=== PATIENT | male | born 1965 ===

== ENCOUNTER 2025-03-07 12:24 | Outpatient (AMB) | payer OTHER, SELFPAY ==
--- NOTE | 2025-03-07 12:29 | A.OFFPC_ITS ---
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 Allergies carbamazepine [From Tegretol] Allergy (Verified 03/07/25 13:07) Rash gabapentin Allergy (Verified 03/07/25 13:07) rash swollen mouth Penicillins Allergy (Verified 03/07/25 13:07) Hives Medication List - Last Reconciled 03/07/25 by MADY Sainz- prednisone 15 mg PO QAM Tobacco use date assessed: 03/07/25 Dental Screening Dental Screen Date: 03/07/25 Did you have a dental visit in the last 12 months?: Yes Did you have a dental problem in the last 6 months where you did not have access to dental care?: No Was dental information given to patient?: Patient has dentist HPI ENVIRONMENTAL FIELD TECHNICIAN requesting Physical HPI Details History of Present Illness The patient is a 60-year-old male presenting with evaluation needs for urinary symptoms, a heart murmur, and skin lesions. He has not sought medical attention in three years. There are symptoms suggestive of benign prostatic hyperplasia with difficulty initiating urination and a weak stream, for which he's interested in addressing with PSA testing. A significant familial component of pancreatic cancer is present, as his brother succumbed to the disease at age 49. Cardiovascular health is a concern given his active lifestyle and existent bradycardia (runner), further compounded by a systolic murmur that warrants echocardiographic evaluation. Recently, he identified pruritic lesions in the right nipple region indicative of possible herpes zoster (started 2days ago). Prior medical history includes management of polymyalgia rheumatica with prednisone. Health Maintenance - PSA testing to address symptoms of dulce ign prostatic hyperplasia/.ssess prostate health, declined BA today - Family history of pancreatic cancer wa rrants a CA 19-9 and CEA testing, and MRI. - Echocardiography planned due to discov ered faint systolic murmur and bradycardia. - Confirm previous colonoscopy results f rom 2019 to determine the need for any future screenings. Social History - Engages in regular physical activity; is a runner. - Family history includes significant ca ncer risk; pancreatic cancer diagnosed in younger brother. Review of Systems - Cardiovascular: Denies chest pain or s hortness of breath. Reports bradycardia and a faint systolic murmur. - Gastrointestinal: Denies abdominal jessy n, constipation, diarrhea, bone stool. - Genitourinary: Reports weak urinary st ream and difficulty starting urination. - Dermatological: Reports itchy lesions over the right nipple, suspecting shingles. - Psychological: Denies any suicidal or homicidal ideation. Physical Exam General: Cooperative, healthy appearing, comfortable, no acute distress and well developed Orientation: Patient oriented x3 Limitations: No limitations Head: Normal to inspection Ears: Hearing grossly normal bilaterally Nose: Normal external nose present Face and sinus: Normal facial exam Eyes: Appearance normal, both eyes and all related structures Neck: Normal visual inspection and Yes full ROM Respiratory: Normal respiratory effort and able to speak in complete sentences. Clear to auscultation bilaterally Cardiovascular: Bradycardic. Regular rate and rhythm. Normal S1 and S2. Systolic murmur heard (faint) GI: Normal to inspection. Soft to palpation and nontender Skin: small erythematous slightly raised lesions noted in the right nipple region, running lateral Neuro: Patient oriented x3 Extremities: Normal to inspection Results Plan I plan to address the patient's urinary symptoms by commencing PSA testing. Considering his family history of pancreatic cancer, I will order CA 19-9 and CEA labs along with an MRI to monitor his pancreatic health. An echocardiogram will be scheduled to investigate the faint systolic murmur and assess for any underlying cardiac issues due to the observed bradycardia. For the skin lesions suggestive of shingles, antiviral medication will be provided. Management of his polymyalgia rheumatica with prednisone will continue without modification. Lastly, I intend to verify the details of his last colonoscopy and adjust future screening as necessary. Discussion Notes I discussed with the patient the indications for PSA testing as a preliminary assessment tool for his urinary symptoms suggestive of benign prostatic hyperplasia. We reviewed his significant familial risk of pancreatic cancer and agreed on the necessity for CA 19-9 and CEA tests, along with an MRI. I emphasized the importance of echocardiography to evaluate his heart murmur further, considering his bradycardic status. We discussed the typical presentation of shingles and the benefit of commencing antiviral treatment. I clarified that the current prednisone regimen for polymyalgia rheumatica remains appropriate. Verification of his prior colonoscopy will be initiated to guide continued cancer screening. Patient Instructions - Complete the prescribed lab work for P SA, CA 19-9, and CEA. - Schedule and attend the echocardiogram . - Begin the antiviral medication for howie james as directed. - Continue taking prednisone for PMR as currently prescribed. - Maintain regular exercise and inform o f any new concerns. - Ensure to follow up with results and f uture appointments. [facility] Medical History PMR (polymyalgia rheumatica) Surgical History H/O knee surgery Family History Father No problems noted. Mother No problems noted. Social History Housing: House Patient Tobacco Use Status: Never used Tobacco e-Cigarette/Vaping Use: Never Used service: No Current occupational status: employed Cognitive needs: No Hearing needs: No Vision needs: No Questionnaire PHQ-9 Over the last 2 weeks, how often have you been bothered by any of the following problems? 1. Little interest or pleasure in doing things: not at all 2. Feeling down, depressed, or hopeless: not at all 3. Trouble falling or staying asleep, or sleeping too much: not at all 4. Feeling tired or having little energy: not at all 5. Poor appetite or overeating: not at all 6. Feeling bad about yourself - or that you are a failure or have let yourself or your family down: not at all 7. Trouble concentrating on things, such as reading the newspaper or watching television: not at all 8. Moving or speaking so slowly that other people could have noticed. Or the opposite - being so fidgety or restless that you have been moving around a lot more than usual: not at all 9. Thoughts that you would be better off or of hurting yourself in some way: not at all Total score: 0 Depression Screening Interpretation: Negative Depression Screening Done: Yes 49256 - PHQ-9 Billing: Yes Source: Developed by Drs. Butch Jenkins, Marleny Kellogg, Frank Polanco and colleagues, with an educational alberto from [employer]. Thrive Questionnaire Date Thrive assessed: 03/07/25 I am a: Patient What is your living situation today?: I choose not to answer this question Within the past 12 months, did the food you bought not last and you didn't have the money to get more?: I choose not to answer this question Within the past 12 months, did you worry whether your food would run out before you got money to buy more?: I choose not to answer this question Do you have trouble paying for medicines?: I choose not to answer this question Do you have trouble getting transportation to medical appointments?: I choose not to answer this question Do you have trouble paying your heating and electricity bill?: I choose not to answer this question Do you have trouble taking care of your child, family member or friend?: I choose not to answer this question Do you have trouble with day-to-day activities such as bathing, preparing meals, shopping, managing finances, etc.?: I choose not to answer this question Are you currently unemployed and looking for a job?: I choose not to answer this question Are you interested in more education?: I choose not to answer this question Please select the resources that you would like help with: None Currently or been in a relationship where the following occur: I choose not to answer THRIVE Score: 0 AUDIT C Alcohol Use Questionnaire (AUDIT-C) 1. How often do you have a drink containing alcohol?: 4 or more times a week 2. How many drinks containing alcohol do you have on a typical day when you are drinking?: 1 or 2 3. How often do you have six or more drinks on one occasion?: Less than monthly Total Score: 5 BRIGHT-7 AMB Questionnaire BRIGHT-7 Date BRIGHT - 7 assessed: 03/07/25 Feeling nervous, anxious, or on edge: 0 = Not at all Not being able to stop or control worryin = Not at all Worrying too much about different things: 0 = Not at all Trouble relaxin = Not at all Being so restless that it is hard to sit still: 0 = Not at all Becoming easily annoyed or irritable: 0 = Not at all Feeling afraid as if something awful might happen: 0 = Not at all Total BRIGHT-7 score (0-4 normal; 5-9 mild; 10-14 moderate; 15-21 severe): 0 Source: Developed by Drs. Butch Jenkins, Marleny Kellogg, Frank Polanco and colleagues, with an educational alberto from [employer]. BRIGHT-7 Assessment Billing BRIGHT-7 Assessment Tool: BRIGHT-7 Assessment 94477 Physical exam (Primary Care) Vital Signs: Last Vital Signs Temp 98.1 F 03/07/25 12:30 Pulse 51 03/07/25 12:30 Resp 18 03/07/25 12:30 BP 118/72 03/07/25 12:30 Pulse Ox 97 03/07/25 12:30 Oxygen Delivery Method Room Air 03/07/25 12:30 BMI result Body Mass Index 27.3 Tobacco/Smoking Status: Tobacco use Status Tobacco use date assessed 03/07/25 03/07/25 12:38 Patient Tobacco Use Status Never used Tobacco 03/07/25 12:38 e-Cigarette/Vaping Use Never Used 03/07/25 12:38 PHQ-9: PHQ-9 Score PHQ-9: Total score 0 03/07/25 12:38 Depression Screening Interpretation: Negative Thrive Assessment: Date of Thrive Assessment Date Thrive assessed 03/07/25 03/07/25 12:38 Currently or been in a relationship where the following occur: I choose not to answer Coding Level of Care Code Est Pt Prev Care 40-64y(54719) Diagnoses Physical exam Z00.00 Screening for prostate cancer Z12.5 Family history of pancreatic cancer Z80.0 Systolic murmur R01.1 Additional Codes BRIGHT-7 Assessment Billing - BRIGHT-7 Assessment Tool: BRIGHT-7 Assessment 67857 ([id number]) PHQ-9 - 15536 - PHQ-9 Billing: Yes ([id number]) Assessment & Plan Assessment & Plan (1) Physical exam: Code(s): Z00.00 - Encounter for general adult medical examination without abnormal findings Category: Medical (2) Screening for prostate cancer: Code(s): Z12.5 - Encounter for screening for malignant neoplasm of prostate Category: Medical (3) Family history of pancreatic cancer: Code(s): Z80.0 - Family history of malignant neoplasm of digestive organs Category: Medical (4) Systolic murmur: Code(s): R01.1 - Cardiac murmur, unspecified Category: Medical Plan . Orders: Orders Comprehensive [place]. Panel Fast Today Z00.00 - Encounter for general adult medical examination without abnormal findings TSH reflex Free T4 Today Z00.00 - Encounter for general adult medical examination without abnormal findings Prostate Specific Antigen Scr Today Z12.5 - Encounter for screening for malignant neoplasm of prostate MR abdomen wo/w con Today Z80.0 - Family history of malignant neoplasm of digestive organs Complete Blood Count Auto Diff Today Z00.00 - Encounter for general adult medical examination without abnormal findings UA CC w/rflx Micro + Cult Today Z00.00 - Encounter for general adult medical examination without abnormal findings Lipid Panel Today Z00.00 - Encounter for general adult medical examination without abnormal findings Carbohydrate Antigen 19-9 Today Z80.0 - Family history of malignant neoplasm of digestive organs Carcinoembryonic Antigen Today Z80.0 - Family history of malignant neoplasm of digestive organs CA echo transthoracic complete Today R01.1 - Cardiac murmur, unspecified Medications: New valacyclovir 1,000 mg PO Q8H 7 days 21 tabs 0RF
--- NOTE | 2025-03-07 12:29 | A.OFFPC_ITS ---
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 1. Little interest or pleasure in doing things: not at all 2. Feeling down, depressed, or hopeless: not at all 3. Trouble falling or staying asleep, or sleeping too much: not at all 4. Feeling tired or having little energy: not at all 5. Poor appetite or overeating: not at all 6. Feeling bad about yourself - or that you are a failure or have let yourself or your family down: not at all 7. Trouble concentrating on things, such as reading the newspaper or watching television: not at all 8. Moving or speaking so slowly that other people could have noticed. Or the opposite - being so fidgety or restless that you have been moving around a lot more than usual: not at all 9. Thoughts that you would be better off or of hurting yourself in some way: not at all Total score: 0 Depression Screening Interpretation: Negative Depression Screening Done: Yes 34626 - PHQ-9 Billing: Yes Source: Developed by Drs. Butch Jenkins, Marleny Kellogg, Frank Polanco and colleagues, with an educational alberto from [employer]. Thrive Questionnaire Date Thrive assessed: 03/07/25 I am a: Patient What is your living situation today?: I choose not to answer this question Within the past 12 months, did the food you bought not last and you didn't have the money to get more?: I choose not to answer this question Within the past 12 months, did you worry whether your food would run out before you got money to buy more?: I choose not to answer this question Do you have trouble paying for medicines?: I choose not to answer this question Do you have trouble getting transportation to medical appointments?: I choose not to answer this question Do you have trouble paying your heating and electricity bill?: I choose not to answer this question Do you have trouble taking care of your child, family member or friend?: I choose not to answer this question Do you have trouble with day-to-day activities such as bathing, preparing meals, shopping, managing finances, etc.?: I choose not to answer this question Are you currently unemployed and looking for a job?: I choose not to answer this question Are you interested in more education?: I choose not to answer this question Please select the resources that you would like help with: None Currently or been in a relationship where the following occur: I choose not to answer THRIVE Score: 0 AUDIT C Alcohol Use Questionnaire (AUDIT-C) 1. How often do you have a drink containing alcohol?: 4 or more times a week 2. How many drinks containing alcohol do you have on a typical day when you are drinking?: 1 or 2 3. How often do you have six or more drinks on one occasion?: Less than monthly Total Score: 5 Score Reviewed/Action Taken: Yes BRIGHT-7 AMB Questionnaire BRIGHT-7 Date BRIGHT - 7 assessed: 03/07/25 Feeling nervous, anxious, or on edge: 0 = Not at all Not being able to stop or control worryin = Not at all Worrying too much about different things: 0 = Not at all Trouble relaxin = Not at all Being so restless that it is hard to sit still: 0 = Not at all Becoming easily annoyed or irritable: 0 = Not at all Feeling afraid as if something awful might happen: 0 = Not at all Total BRIGHT-7 score (0-4 normal; 5-9 mild; 10-14 moderate; 15-21 severe): 0 Source: Developed by Drs. Butch Jenkins, Marleny Kellogg, Frank Polanco and colleagues, with an educational alberto from [employer]. BRIGHT-7 Assessment Billing BRIGHT-7 Assessment Tool: BRIGHT-7 Assessment 11127 Physical exam (Primary Care) Depression Screening Interpretation: Negative Currently or been in a relationship where the following occur: I choose not to answer Coding Additional Codes PHQ-9 - 62043 - PHQ-9 Billing: Yes ([id number]) BRIGHT-7 Assessment Billing - BRIGHT-7 Assessment Tool: BRIGHT-7 Assessment 11299 ([id number])
[2025-03-07 12:30] VITALS: BP 118/72; PULSE 51; RESP 18; TEMP 36.7; O2SAT 97; BMI 27.3
--- OUTSIDE RECORDS SUMMARY | 2025-03-07 14:24 | XMS_ITS | Patient Health Record ---
Author Organization [facility] Address [address] [place] [address] Care Team Providers Care Client Specialist Name Role Phone TRU DE LA O Unavailable [phone] ALLERGIES Allergen (clinical drug ingredient) Drug/Non Drug Allergy documented on EMR Reaction Allergy Type Onset Date Status gabapentin Gabapentin Unknown Drug Allergy Activ e carbamazepine TEGretol Unknown Drug Allergy Act eli Penicillin Unknown Drug Allergy Active REASON FOR REFERRAL No Information SOCIAL HISTORY Tobacco Use: Social History Observation Description Date Details (start date - stop date) Never Smoker NA - NA Sex Assigned At : Social History Observation Description Sex Assigned At Unknown Tobacco Use/Smoking Question Answer Notes 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 Comprehensive discussion was done on the following. 1. Nutrition: It is important to follow a healthy diet based on lots of vegetables and legumes and good fat. Avoid processed food and processed carbohydrates. Learn to prepare your own meals. Learn to read labels and avoid high fructose corn syrup, processed chemicals added to increase shelf life and preprepared meals. Avoid fast foods. Learn to eat slowly and plan meals for a week. Try to count calories and be mindful off daily calorie intake. Get into the habit of keeping an eye on your weight by using an appropriate scale. Learn to log exercise and discussed fitness Apps like [employer] which can help keep log off calories taken versus calories burned. Local food should be preferred. Discussed Dirty Dozen Versus Clean Fifteen. Discussed healthy supplements like fish oil, Tumeric, Curcumin, Melatonin, Resveratrol, Probiotics, Vitamin-D, Alpha-Lipoic acid, Vitamin-D and coconut oil. 2. It is important to exercise regularly. Is a good habit to walk at least 30-45 minutes a day. Gentle weightlifting with standard precautions to protect the back. Finding activity like cycling or hiking and get into the habit of engaging in it. Stretching before and after the exercises important. It is also important to contact me if there are any problems like shortness of breath, chest pain, back pain and joint or muscle pain associated with the exercise. 3. Discussed age appropriate screening guidelines. Colonoscopy needs to start at age 50 with stool for occult blood as appropriate. There is a new test that can test for genetic abnormalities in the stool sample. This would not replace a colonoscopy but could be used as a screening tool for patients who do not want a colonoscopy. We discussed the importance of early detection of colon cancer. 4. Discussed current guidelines with respect to breast examination, mammogram and pap smear for early detection of breast and cervical cancer. Patient advised to follow up with these appointments. 5. Discussed safe driving and no use of smart phone while driving 6. Age-appropriat e immunizations were discussed. A tetanus booster is needed every 10 years. Flu vaccine is recommended every year just before the start of the flu season. Shingles vaccine is recommended after age 50 but not all insurances cover it. Pneumonia vaccine is given after age 65 unless there are certain comorbidities for which it is started earlier. 7. Diagnostic labs were discussed. These could include CBC CMP and lipids with fasting blood glucose and insulin levels. Vitamin D and hemoglobin A1c testing might be appropriate. 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 confirmed [id number] Problem Dyslipidemia (E78.5) Active confirmed D yslipidemia ([id number]) PLAN OF TREATMENT Pending Test Test Name Order Date EKG 06/15/2022 LIPID PANEL, STANDARD 06/15/2022 LIPID PANEL, STANDARD 05/05/2022 COMPREHENSIVE METABOLIC PANEL 05/05/2022 CBC (INCLUDES DIFF/PLT) 05/05/2022 URINALYSIS, COMPLETE 05/05/2022 HEMOGLOBIN A1c 05/05/2022 INSULIN 05/05/2022 T4, FREE 06/15/2022 TSH 06/15/2022 VITAMIN D,25-OH,TOTAL,IA 05/05/2022 Insurance Providers Payer Name Payer Address Payer Phone Subscriber Number Group Number Insured Name Patient Relationship to Insured Coverage Start Date Coverage End Date [facility] [address] [place] [address] [id number] Self - patient is the insured
== END 2025-03-07 13:48 | disposition home or self-care (01) ==
LOC: HO.HMCC 12:26
PROVIDERS: PCP Nurse Practitioner Family; Visit Provider Nurse Practitioner Family
DX: Z00.00 Encounter for general adult medical examination without abnormal findings (principal); Z12.5 Encounter for screening for malignant neoplasm of prostate; Z80.0 Family history of malignant neoplasm of digestive organs; R01.1 Cardiac murmur, unspecified

== ENCOUNTER → 2025-03-07 12:24 | Outpatient (BNVA) | payer OTHER, SELFPAY | PROVIDERS: PCP Nurse Practitioner Family; Visit Provider Nurse Practitioner Family | DX: Z00.00 Encounter for general adult medical examination without abnormal findings (principal); R01.1 Cardiac murmur, unspecified; Z80.0 Family history of malignant neoplasm of digestive organs | CPT/HCPCS: 96127; 99396 ==

== ENCOUNTER 2025-03-12 06:40 | Outpatient (REF) | payer OTHER, SELFPAY ==
[2025-03-12 10:36] LABS: MANUAL DIFF FLAG NO
[2025-03-12 10:46] LABS: Basophils Absolute Auto 0.1 X10*3/uL (0.0-0.2); Basophils Percent Auto 0.9 % (0-2); Eosinophils Absolute Auto 0.9 X10*3/uL (0.0-0.4); Hematocrit 41.5 % (42.0-52.0); Hemoglobin 13.1 g/dl (14.0-18.0); Imm Gran Abs Auto 0.06 X10*3/uL (0.00-0.03); Imm Gran Pct Auto 0.6 % (0.0-0.4); Lymphocytes Absolute Auto 2.8 X10*3/uL (1.2-4.9); Lymphocytes Percent Auto 30.3 % (20-40); Mean Corpuscular HGB Conc 31.6 g/dl (31.0-36.0); Mean Corpuscular Hemoglobin 23.5 pg (27.0-33.0); Mean Corpuscular Volume 74.4 fL (80.0-98.0); Monocytes Percent Auto 10.4 % (2-11); Neutrophils Absolute Auto 4.5 x10*3/uL (2.0-8.3); Neutrophils Percent Auto 47.8 % (45-73); Platelet Count 223 X10*3/uL (160-400); Red Blood Count 5.58 X10*6/uL (4.60-5.80); Red Cell Distribution Width 16.3 % (11.0-16.0); White Blood Count 9.3 X10*3/uL (4.8-10.8)
[2025-03-12 10:56] LABS: Appearance Urine Clear; Color Urine Yellow; Glucose Urine UA Negative (Negative); Leukocyte Esterase Urine Negative (Negative); Nitrite Urine Negative (Negative); PH 6.5 (5.0-9.0); Specific Gravity - Urine 1.015 (1.005-1.025); Urine Blood Negative (Negative); Urine Ketones Negative (Negative); Urine Protein Negative (Neg-Trace)
[2025-03-12 11:31] LABS: Prostate Specific Antigen Scr 5.22 ng/mL (<0.05-4.0)
[2025-03-12 11:39] LABS: Alanine Aminotransferase 17 U/L (0-40); Albumin Level 3.8 g/dL (3.5-5.0); Alkaline Phosphatase 42 U/L (39-117); Anion Gap 10 (12-20); Aspartate Amino Transferase 20 U/L (5-37); Bilirubin Total 0.4 mg/dL (0.0-1.0); Blood Urea Nitrogen 16 mg/dL (9-16); Calcium 9.2 mg/dL (8.4-10.2); Carbon Dioxide 28 mmol/L (22-29); Chloride 104 mmol/L (96-108); Cholesterol 245 mg/dL (<200); Estimated Glomerular Filt Rate > 60; Glucose Fasting 90 mg/dL (60-99); HDL Cholesterol 79 mg/dL (>40); LDL Cholesterol Calculated 149 mg/dL (<100); Potassium 3.7 mmol/L (3.3-5.1); Sodium 138 mmol/L (135-145); Total Protein 6.2 g/dL (6.5-8.0); Triglycerides 86 mg/dL (<150)
[2025-03-12 11:54] LABS: TSH reflex Free T4 4.06 uIU/mL (0.32-4.0)
[2025-03-12 12:46] LABS: Free T4 (Free Thyroxine) 0.86 ng/dL (0.71-1.85)
[2025-03-13 14:33] LABS: Carbohydrate Antigen 19-9 10 U/mL (<34)
== END 2025-03-12 06:41 | disposition home or self-care (01) ==
LOC: HO.HMGCLDS 06:40
PROVIDERS: PCP Nurse Practitioner Family; Visit Provider Nurse Practitioner Family
DX: Z00.00 Encounter for general adult medical examination without abnormal findings (principal); Z12.5 Encounter for screening for malignant neoplasm of prostate; Z80.0 Family history of malignant neoplasm of digestive organs
CPT/HCPCS: 36415; 80053; 80061; 81003; 82378; 84153; 84439; 84443; 85025; 86301

== ENCOUNTER → 2025-03-16 15:45 | Outpatient (BNV) | payer OTHER, SELFPAY | PROVIDERS: PCP Nurse Practitioner Family; Visit Provider Radiology Diagnostic Radiology | DX: D35.01 Benign neoplasm of right adrenal gland (principal); D35.02 Benign neoplasm of left adrenal gland | CPT/HCPCS: 74183 ==

== ENCOUNTER 2025-03-16 15:46 | Outpatient (REF) | payer OTHER, SELFPAY ==
--- NOTE | ~2025-03-16 | MR_ITS ---
EXAMINATION: MR ABDOMEN WITHOUT AND WITH CONTRAST CLINICAL INFORMATION: Family history of pancreatic cancer. COMPARISON: None available. TECHNIQUE: MR abdomen was performed without and with use of 9 mL intravenous (Gadavist) gadolinium contrast. Postcontrast images are performed in multiphase dynamic sequences. Imaging was performed in 3 planes. No reported immediate complications. FINDINGS: Patient's breathing motion artifact. LUNG BASES: No enhancing lesion. No fully included in the [id number]. LIVER, GALLBLADDER, AND BILIARY TREE: Liver measures 14 cm. No focal enhancing mass. Portal veins, hepatic veins and intrahepatic portion of the IVC are patent. No intrahepatic biliary ductal dilatation. Gallbladder is fluid-filled. No pericholecystic fluid collection or gallbladder wall thickening. Common bile duct measures 4 mm. PANCREAS: No focal mass. No main pancreatic ductal dilatation. No peripancreatic fluid collection. SPLEEN: 10 cm. No focal mass. ADRENAL GLANDS: Right adrenal gland: There is a 2 cm nodular lesion with iso to hypointense T1 and isointense T2 with drop off signal from the interface to the out of phase sequences. Left adrenal gland: There is a 1.4 cm nodular lesion with iso to hypointense T1 and isointense T2 with drop off signal from the in phase to out of phase imaging . KIDNEYS AND URETERS: No hydronephrosis. No solid lesion. Cystic lesions in the parapelvic left kidney and subcentimeter cystic lesion in the upper pole right kidney. GASTROINTESTINAL TRACT: Abundant stool, large intestine. No intestinal obstruction pattern. No ascites. ABDOMINAL WALL: Fat-containing umbilical hernia. LYMPH NODES: No lymphadenopathy. VASCULAR: No aneurysm or dissection, abdominal aorta. OSSEOUS STRUCTURES: Mild multilevel thoracic and lumbar spondylosis. MR/MR abdomen wo/w con IMPRESSION: No pancreatic mass. Lipid rich Adrenal adenoma, bilaterally. Electronically signed by: Giovani Infante MD 03/20/2025 08:44 AM EDT
--- OUTSIDE RECORDS SUMMARY | 2025-03-16 15:51 | XMS_ITS | Patient Health Record ---
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 Comprehensive discussion was [...] log exercise and discussed fitness Apps like [employer] which can help keep log off calories [...] appropriate. 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 confirmed [id number] Problem Dyslipidemia (E78.5) Active confirmed D yslipidemia (751189646) PLAN OF TREATMENT Pending Test Test Name Order Date EKG 06/15/2022 LIPID PANEL, STANDARD 05/05/2022 LIPID PANEL, STANDARD 06/15/2022 COMPREHENSIVE METABOLIC PANEL 05/05/2022 CBC (INCLUDES DIFF/PLT) 05/05/2022 URINALYSIS, COMPLETE 05/05/2022 HEMOGLOBIN A1c 05/05/2022 INSULIN 05/05/2022 T4, FREE 06/15/2022 TSH 06/15/2022 VITAMIN D,25-OH,TOTAL,IA 05/05/2022 Insurance Providers Payer Name Payer Address Payer Phone Subscriber Number Group Number Insured Name Patient Relationship to Insured Coverage Start Date Coverage End Date [facility] [address] [place] [address] [id number] Self - patient is the insured
[2025-03-16] MEDS: gadobutroL 10 ML VIAL IVPUSH (17:11)
== END 2025-03-16 15:47 | disposition home or self-care (01) ==
LOC: HO.MRI 15:46
PROVIDERS: PCP Nurse Practitioner Family; Visit Provider Nurse Practitioner Family
DX: D35.02 Benign neoplasm of left adrenal gland (principal); D35.01 Benign neoplasm of right adrenal gland; Z80.0 Family history of malignant neoplasm of digestive organs
CPT/HCPCS: 74183; A9585

== ENCOUNTER → 2025-03-21 10:43 | Outpatient (REF) | payer OTHER, SELFPAY ==
--- NOTE | 2025-03-21 10:45 | CA_ITS ---
Transthoracic Echocardiogram Patient (Last, First, Middle): Giles Solis, Gender: Male Date of : 1965 Age: 60 Procedure Date: 03/21/2025 Procedure Type: Transthoracic Echocardiogram Location: OP Height: 182.88 cm Weight: 88.45 kg BSA: 2.11 m2 Heart Rate: 51 bpm BP: 118 / 70 mmHg Fretted Instruments Inspector: SB Referring MD: Pastor Castro [facility] Symptoms: R01.1 - Cardiac murmur, unspecified Study Quality: Adequate ECG Rhythm: Bradycardia Conclusions: - The left ventricular systolic function is normal. The calculated ejection fraction is 65% by biplane method. - No obvious valvular pathology seen on this study. Findings Left Ventricle Normal left ventricular cavity size. The left ventricular systolic function is normal. The calculated ejection fraction is 65% by biplane method. There is no evidence of regional wall motion abnormalities. Diastolic function is normal for age. There is mild septal and mild basal asymmetric hypertrophy. Right Ventricle Mildly increased right ventricular cavity size. There is normal right ventricular systolic function. Atria The left atrium is normal in size. The right atrium is mildly dilated. Aortic Valve There is a normal trileaflet aortic valve. There is no aortic valve stenosis. There is no aortic valve regurgitation. Mitral Valve There is no mitral valve regurgitation. There is no mitral valve stenosis. Pulmonic Valve The pulmonic valve is likely normal. Tricuspid Valve There is no tricuspid valve regurgitation. Tricuspid regurgitation envelope is inadequate for calculation of right ventricular systolic pressure. Great Vessels The asc aorta is normal in size. Venous The inferior vena cava is mildly dilated and collapses greater than 50% with inspiration. Pericardium/Pleural There is no evidence of pericardial effusion. Prior Study Comparison No prior study available for comparison. Recommendations, Care & Conclusions No obvious valvular pathology seen on this study. Measurements 2D Linear Measurements IVSd: 0.94 0.6-0.9/0.6-1.0 cm LVIDd: 5.55 3.9-5.3/4.2-5.9 cm LVIDd Index: 2.63 2.4-3.2/2.2-3.1 cm/m2 LVIDs: 3.68 2.0-3.6 cm LVPWd: 0.86 0.7-1.1 cm LA Diam: 4.40 2.7-3.8/3.0-4.0 cm LAIDs Index: 2.09 1.5-2.3 cm/m2 LV Mass: 234.65 67-162/88-224 g LV Mass Index: 111.21 43-95/49-115 g/m2 LVOT Diam: 2.40 3.0+(-)1.3 cm 2D Systolic Function EF 4C: 65.10 >55% EF 2C: 60.70 >55% EF BiP: 64.90 >55% Mitral Valve MV Pk E: 0.78 MV PK A: 0.76 MV Decel Time: 229.00 E/A: 1.00 E'Lateral: 8.59 E'Medial: 5.98 E/E' Med: 13.10 E/E' Lat: 9.10 PHT: 67.00 MVA PHT: 3.28 Decel Starr: 3.42 Aortic Valve AoV Pk Efrain: 1.42 AoV Pk Grad: 8.00 LIBIA: 3.77 LVOT LVOT Pk Efrain: 1.25 LVOT Mn Efrain: 0.76 LVOT VTI: 0.26 LVOT Pk Grad: 6.00 LVOT Mn Grad: 3.00 LVOT Diam: 2.40 LVOT Area: 4.52 Diastolic Function MV Pk E: 0.78 MV Pk A: 0.76 E/A: 1.00 E'Medial: 5.98 E/E' Med: 13.10 E' Laterial: 8.59 E/E' Lat: 9.10 Right Ventricle TAPSE (mm): 23.00 TVS' Efrain: 14.00 Tricuspid Valve RA Press: 8.00 Great Vessels Aorta Sinus of Valsalva: 3.60 2.0-3.5 cm Ao Asc: 3.60 2.1-3.4 cm Pulmonary Valve PV Pk Efrain: 1.02 Peak PV Grad: 4.00 Updated in Other Vendor System with Status of Final Jonathan Membreno MD electronically signed on 03/22/2025 10:27:32 AM with status of Final
--- OUTSIDE RECORDS SUMMARY | 2025-03-21 12:46 | XMS_ITS | Patient Health Record ---
Author Organization [facility] Address [address] [place] [address] Care Team Providers Care Brake Operator Sheet Metal Name Role Phone TRU DE LA O Unavailable [phone] ALLERGIES Allergen (clinical drug ingredient) Drug/Non Drug [...] findings (Z00.00) Active confirmed Adult health examination (212551871) Patient seen and examined. Comprehensive discussion was [...] log exercise and discussed fitness Apps like [employer] which can help keep log off calories [...] appropriate. 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
== END ==
LOC: HO.CARD 10:43
PROVIDERS: PCP Nurse Practitioner Family; Visit Provider Nurse Practitioner Family
DX: R01.1 Cardiac murmur, unspecified (principal)
CPT/HCPCS: 93306

== ENCOUNTER → 2025-03-21 10:45 | Outpatient (BNV) | payer OTHER, SELFPAY | PROVIDERS: PCP Nurse Practitioner Family; Visit Provider Internal Medicine | DX: R01.1 Cardiac murmur, unspecified (principal) | CPT/HCPCS: 93306 ==

== ENCOUNTER 2025-04-15 | Outpatient (REF) | payer OTHER, SELFPAY ==
[2025-04-24 07:23] LABS: FIT Lot M01203
[2025-04-24 07:42] LABS: FIT Int Ctl YES; FIT1 NEGATIVE (NEGATIVE); FIT2 NEGATIVE (NEGATIVE)
== END 2025-04-15 00:01 | disposition home or self-care (01) ==
LOC: HO.LNP
PROVIDERS: Visit Provider Nurse Practitioner Family
DX: D64.9 Anemia, unspecified (principal)
CPT/HCPCS: 82274

== ENCOUNTER 2025-04-26 06:44 | Outpatient (REF) | payer OTHER, SELFPAY ==
[2025-04-26 10:44] LABS: Retic HGB Equivalent 27.2 pg (30.0-35.0); Reticulocyte Percent 1.3 % (0.5-1.8); Reticulocytes Absolute 0.071 X10*6/uL (0.026-0.095)
[2025-04-26 11:07] LABS: Alanine Aminotransferase 28 U/L (0-40); Alkaline Phosphatase 52 U/L (39-117); Anion Gap 11 (12-20); Aspartate Amino Transferase 25 U/L (5-37); Bilirubin Total 0.2 mg/dL (0.0-1.0); Blood Urea Nitrogen 12 mg/dL (9-16); Calcium 9.2 mg/dL (8.4-10.2); Carbon Dioxide 29 mmol/L (22-29); Chloride 103 mmol/L (96-108); Cholesterol 197 mg/dL (<200); Estimated Glomerular Filt Rate > 60; Glucose Fasting 98 mg/dL (60-99); HDL Cholesterol 70 mg/dL (>40); Iron 65 mcg/dL (45-160); LDL Cholesterol Calculated 108 mg/dL (<100); Lactate Dehydrogenase 315 U/L (118-273); Percent Iron Saturation 27 % (15-50); Potassium 3.7 mmol/L (3.3-5.1); Sodium 139 mmol/L (135-145); Total Iron Binding Capacity 244 mcg/dL (228-428); Total Protein 6.4 g/dL (6.5-8.0); Triglycerides 95 mg/dL (<150); Unsaturated Iron Binding 179 ug/dL
[2025-04-26 11:27] LABS: Ferritin 242 ng/mL (20-250)
[2025-04-26 11:40] LABS: Folate 8.8 ng/mL (> or = 4.0); Vitamin B12 317 pg/mL (200-900)
[2025-04-26 12:05] LABS: Free T4 (Free Thyroxine) 0.96 ng/dL (0.71-1.85)
== END 2025-04-26 06:45 | disposition home or self-care (01) ==
LOC: HO.HMGCLDS 06:44
PROVIDERS: PCP Nurse Practitioner Family; Visit Provider Nurse Practitioner Family
DX: E78.5 Hyperlipidemia, unspecified (principal); D64.9 Anemia, unspecified; R79.89 Other specified abnormal findings of blood chemistry
CPT/HCPCS: 36415; 80053; 80061; 82607; 82728; 82746; 83540; 83615; 84439; 84443; 85045

== ENCOUNTER 2025-05-02 15:35 | Outpatient (AMB) | payer OTHER, SELFPAY ==
--- OUTSIDE RECORDS SUMMARY | 2025-05-02 15:44 | XMS_ITS | Patient Health Record ---
Author Organization [facility] Address [address] [place] [address] Care Team Providers Care Leather Case Finisher Name Role Phone TRU DE LA O Unavailable [phone] Allergies Allergen (clinical drug ingredient) Drug/Non Drug Allergy documented on EMR Reaction Allergy Type Onset Date Status gabapentin Gabapentin Unknown Drug Allergy Activ e carbamazepine TEGretol Unknown Drug Allergy Act eli Penicillin Unknown Drug Allergy Active Reason For Referral No Information Social History Tobacco Use: Social History Observation Description Date Details (start date - stop date) Never Smoker NA - NA Tobacco Use/Smoking Question Answer Notes Are you a nonsmoker Section Notes: auto body auto body Problems Problem Type SNOMED Code ICD Code Onset Dates Problem Status W/U Status Risk Notes Problem Adult health examination (419474727) Encounter for general adult medical examination without abnormal findings (Z00.00) Active confirmed Patient seen and examined. Comprehensive discussion was [...] log exercise and discussed fitness Apps like [employer] which can help keep log off calories [...] hemoglobin A1c testing might be appropriate. Problem [id number] Acquired hyperlipoproteinemia (E78.5) Active confirmed Problem Dyslipidemia (420338657) Dyslipidemia (E78.5) Active confirmed Plan Of Treatment Pending Test Test Name Order Date EKG [...] Insured Coverage Start Date Coverage End Date [facility] [address] [facility] [place] [address] [phone] [id number] LAXMI HAMM Self - patient is the insured
--- NOTE | 2025-05-02 15:57 | A.OFFVIS_ITS ---
Intake Visit Reasons: elevated PSA Intake Note: Patient is present for ELEVATED PSA Urology Medication:NONE Antibiotic Allergy:PENICILLINS,GABAPENTIN Blood Thinner:NONE Machine Cleaner Required: No Allergies carbamazepine [From Tegretol] Allergy (Verified 05/02/25 15:58) Rash gabapentin Allergy (Verified 05/02/25 15:58) rash swollen mouth Penicillins Allergy (Verified 05/02/25 15:58) Hives HPI Comments Details: Giles is a pleasant male. He is a patient of Dr. Etienne. He is seen for the following urologic conditions - elevated PSA - urinary hesitancy - weakness of stream Elevated PSA Enlarged prostate on BA Plan bladder ultrasound Trial alfuzosin Elevated PSA PSA - 03/23 5.2 Lower urinary tract symptoms Initial assessment predominantly urinary hesitancy and weakness of stream No prior medications PFSH Medical History PMR (polymyalgia rheumatica) Surgical History H/O knee surgery Family History Father No problems noted. Mother No problems noted. Social History Housing: House Patient Tobacco Use Status: Never used Tobacco e-Cigarette/Vaping Use: Never Used service: No Current occupational status: employed Cognitive needs: No Hearing needs: No Vision needs: No Review of Systems Const Denies chills and Denies fever(s) Card Reports no additional complaints and Denies syncope Resp Denies cough GI Denies abdominal pain and Denies heartburn Reports as per HPI and Denies change in libido Neuro Denies syncope Psych Denies change in libido Endo Denies change in libido Physical Exam Const General: cooperative, healthy appearing, comfortable and no acute distress Orientation/consciousness: patient oriented x3 HEENT Face and sinus: Yes normal facial exam Mouth: moist mucous membranes Neck Neck: Yes normal visual inspection, Yes full ROM and Yes trachea midline Chest Chest palpation & inspection: normal inspection of the chest Resp Effort & Inspection: normal respiratory effort, able to speak in complete sentences and no respiratory distress GI Inspection: Yes normal to inspection Rectal Exam - Male: Yes normal sphincter tone and Yes prostate normal Male General Exam: Yes normal external exam Penis: normal penis and circumcised Meatus: meatus normal Scrotum: scrotum normal Testes: Testes normal Back/Spine/Pelvis Cervical Spine: normal cervical lordosis Thoracic/Lumbar Spine: thoracic and lumbar spine normal to inspection Skin General skin exam: no rashes or lesions noted Neuro General: patient oriented x3, gait normal, tone normal and moves all extremities Extrem General: Yes normal to inspection and Yes capillary refill normal Results AMB Urinalysis, Automated UA Leukoctes 0 Sarah/uL Last Edit by Carter Paula [facility] on 05/02/25 16:12 UA Nitrite Last Edit by Carter Paula, [facility] on 05/02/25 16:12 UA Urobilinogen 3.5 mg/dL Last Edit by Carter Paula, [facility] on 05/02/25 16:12 UA Protein 0 mg/dL Last Edit by Carter Paula, [facility] on 05/02/25 16:12 UA pH 6.0 Last Edit by Carter Paula, [facility] on 05/02/25 16:12 UA Blood 0 Bhargav/uL Last Edit by Carter Paula, [facility] on 05/02/25 16:12 UA Specific [place] 1.010 Last Edit by Carter Paula, [facility] on 05/02/25 16:12 UA Ketone Last Edit by Carter Paula, [facility] on 05/02/25 16:12 UA Bilirubin 0 mg/dL Last Edit by Carter Paula, [facility] on 05/02/25 16:12 UA Glucose 0 mg/dL Last Edit by Carter Paula, [facility] on 05/02/25 16:12 Results Reviewed Results Reviewed: Laboratory Last Values Urine pH (Auto) 6.0 05/02/25 16:07 Specific [place] (Auto) 1.010 05/02/25 16:07 Urine Protein (Auto) 0 mg/dL 05/02/25 16:07 Glucose (UA)(Auto) 0 mg/dL 05/02/25 16:07 Urine Blood (Auto) 0 Bhargav/uL 05/02/25 16:07 Urine Bilirubin (Auto) 0 mg/dL 05/02/25 16:07 Urine Urobilinogen (Auto) 3.5 mg/dL 05/02/25 16:07 Leukocyte Esterase (Auto) 0 Sarah/uL 05/02/25 16:07 Assessment & Plan Assessment & Plan (1) Elevated prostate specific antigen (PSA): Code(s): R97.20 - Elevated prostate specific antigen [PSA] Category: Medical (2) Urinary hesitancy: Code(s): R39.11 - Hesitancy of micturition Category: Medical (3) Weak urinary stream: Code(s): R39.12 - Poor urinary stream Category: Medical Plan Trial of alfuzosin Three-month follow-up repeat PSA Bladder ultrasound Orders: Orders AMB Urinalysis Automated Today Z13.9 - Encounter for screening, unspecified PSA,Total (Free>4and<10) 3 Months R97.20 - Elevated prostate specific antigen [PSA] US bladder Today R39.12 - Poor urinary stream Medications: New alfuzosin ER 10 mg PO DAILY 30 days 30 tabs 1RF R97.20 - Elevated prostate specific antigen [PSA] Patient Instructions: This note is constructed using voice recognition software. While every effort villasenor s been made to ensure accuracy cutter out errors may have been included. Imaging studies, laboratory and physical exam results were discussed and reviewed in detail. No major barriers to patient understanding were identified. An opportunity to ask questions regarding the treatment plan was provided. All questions were answered. The patient expressed understanding and agreement with the above treatment plan. The patient is aware they should contact our office by phone for worsening of their current condition or the appearance of new urologic symptoms. Compliance is encouraged with any medications and followup testing that is ordered. It is a privilege to participate in the urologic care of your patient. If you have any questions or concerns regarding treatment for the above conditions, or other urologic issues, please do not hesitate to contact me. The office telephone contact is [phone]. Sincerely, Dr Ravindra Rodriguez MD, [facility] - Urology Compassionate Specialist Care for the Genitourinary System Coding Level of Care Code New Pt Level 4 (86797) Diagnoses Elevated prostate specific antigen (PSA) R97.20 Urinary hesitancy R39.11 Weak urinary stream R39.12
== END 2025-05-02 16:40 | disposition home or self-care (01) ==
LOC: HO.HUSH 15:36
PROVIDERS: PCP Nurse Practitioner Family; Visit Provider Urology
DX: R97.20 Elevated prostate specific antigen [PSA] (principal); R39.11 Hesitancy of micturition; R39.12 Poor urinary stream; Z13.9 Encounter for screening, unspecified
CPT/HCPCS: 99204

== ENCOUNTER → 2025-05-02 15:35 | Outpatient (BNVA) | payer OTHER, SELFPAY | PROVIDERS: PCP Nurse Practitioner Family; Visit Provider Urology | DX: N40.1 Benign prostatic hyperplasia with lower urinary tract symptoms (principal); R39.12 Poor urinary stream; R39.11 Hesitancy of micturition; R97.20 Elevated prostate specific antigen [PSA] | CPT/HCPCS: 81003; 99202 ==

== ENCOUNTER 2025-05-14 15:39 | Outpatient (AMB) | payer OTHER, SELFPAY ==
--- NOTE | 2025-05-14 15:42 | A.OFFPC_ITS ---
Vital Signs 05/14/25 15:44 Weight 204 lb 2 oz BP 112/70 Blood Pressure Location Lt brachial Position Sitting Respiration 14 Pulse 54 Pulse Source Pulse Oximeter Temp 98.1 F Temp Source Oral Pulse Oximetry (%) 95 Oxygen Delivery Method Room Air Intake Visit Reasons: 2M F/U Allergies carbamazepine [From Tegretol] Allergy (Verified 05/14/25 16:22) Rash gabapentin Allergy (Verified 05/14/25 16:22) rash swollen mouth Penicillins Allergy (Verified 05/14/25 16:22) Hives Medication List - Last Reconciled 05/14/25 by Pastor Castro, RADIOLOGY DIRECTOR- alfuzosin ER 10 mg PO DAILY 30 days prednisone 15 mg PO QAM Tobacco use date assessed: 05/14/25 Dental Screening Dental Screen Date: 05/14/25 Did you have a dental visit in the last 12 months?: Yes Did you have a dental problem in the last 6 months where you did not have access to dental care?: No Was dental information given to patient?: Patient has dentist HPI 2M F/U HPI Details Chief Complaint The patient presents for a follow-up regarding anemia. History of Present Illness The patient is a 60-year-old male presenting with anemia. The anemia is suspected to be related to his Polymyalgia Rheumatica (PMR), for which he is under the care [facility]. The patient has a family history of pancreatic cancer, with his younger brother having from the disease. An abdominal MRI revealed lipid-rich adenomas, leading to a referral to endocrinology for surveillance and potential genetic testing. Thyroid function tests have shown some abnormalities, and these will continue to be monitored. The patient reports feeling great despite being bradycardic, and having a slightly hypoactive thyroid and he is an active runner. An echocardiogram showed no significant valvular pathology, with an ejection fraction of 65%, which is considered excellent. A small umbilical hernia was noted during the examination, but the patient reports no abdominal pain. Social History - Exercise: The patient is a runner. Health Maintenance - Surveillance for lipid-rich adenomas w [facility] endocrinology referral - Genetic testing consideration due to f amily history of pancreatic cancer Review of Systems - Cardiovascular: Reports feeling great despite bradycardia and systolic murmur - Abdominal: Denies abdominal pain Physical Exam General: Cooperative, healthy appearing, comfortable, no acute distress and well developed Orientation: Patient oriented x3 Limitations: No limitations Head: Normal to inspection Ears: Hearing grossly normal bilaterally Nose: Normal external nose present Face and sinus: Normal facial exam Eyes: Appearance normal, both eyes and all related structures Neck: Normal visual inspection and Yes full ROM Respiratory: Normal respiratory effort and able to speak in complete sentences. Clear to auscultation bilaterally Cardiovascular: Bradycardic with a slight systolic murmur. GI: Normal to inspection. Soft to palpation and nontender. Small umbilical hernia noted Skin: No rashes or lesions noted Neuro: Patient oriented x3 Extremities: Normal to inspection Results - Echocardiogram: No significant valvula r pathology, ejection fraction 65% - Abdominal MRI: Lipid-rich adenomas not ed Plan The plan includes repeating laboratory tests to monitor anemia, which is suspected to be related to Polymyalgia Rheumatica PMR). The patient will continue to be monitored for thyroid function abnormalities, and follow-up with endocrinology is advised for the lipid-rich adenomas noted on MRI. Genetic testing is being considered due to the family history of pancreatic cancer. The patient is advised to maintain his current level of physical activity as a runner, given the excellent ejection fraction noted on echocardiogram. The small umbilical hernia will be monitored, and the patient should report any changes or symptoms. Discussion Notes During the visit, I discussed with the patient the potential causes of his anemia, likely related to his Polymyalgia Rheumatica (PMR). We reviewed the findings of the abdominal MRI, which showed lipid-rich adenomas, and the need for endocrinology follow-up and possible genetic testing due to his family history of pancreatic cancer. I also explained the importance of monitoring his thyroid function and maintaining his current exercise regimen, given his cardiovascular status. Patient Instructions - Continue with current exercise routine as a runner. - Follow up with endocrinology for lipid -rich adenomas. - Monitor for any changes in symptoms re lated to the umbilical hernia and report if any occur. - Await further instructions regarding g enetic testing. [facility] Medical History PMR (polymyalgia rheumatica) Surgical History H/O knee surgery Family History Father No problems noted. Mother No problems noted. Social History Housing: House Patient Tobacco Use Status: Never used Tobacco e-Cigarette/Vaping Use: Never Used service: No Current occupational status: employed Cognitive needs: No Hearing needs: No Vision needs: No Questionnaire PHQ-9 Over the last 2 weeks, how often have you been bothered by any of the following problems? 1. Little interest or pleasure in doing things: not at all 2. Feeling down, depressed, or hopeless: not at all 3. Trouble falling or staying asleep, or sleeping too much: not at all 4. Feeling tired or having little energy: not at all 5. Poor appetite or overeating: not at all 6. Feeling bad about yourself - or that you are a failure or have let yourself or your family down: not at all 7. Trouble concentrating on things, such as reading the newspaper or watching television: not at all 8. Moving or speaking so slowly that other people could have noticed. Or the opposite - being so fidgety or restless that you have been moving around a lot more than usual: not at all 9. Thoughts that you would be better off or of hurting yourself in some way: not at all Total score: 0 Depression Screening Interpretation: Negative Depression Screening Done: Yes 26393 - PHQ-9 Billing: Yes Source: Developed by Drs. Butch Jenkins, Marleny Kellogg, Frank Polanco and colleagues, with an educational alberto from [employer]. Thrive Questionnaire Date Thrive assessed: 05/14/25 I am a: Patient What is your living situation today?: I choose not to answer this question Within the past 12 months, did the food you bought not last and you didn't have the money to get more?: I choose not to answer this question Within the past 12 months, did you worry whether your food would run out before you got money to buy more?: I choose not to answer this question Do you have trouble paying for medicines?: I choose not to answer this question Do you have trouble getting transportation to medical appointments?: I choose not to answer this question Do you have trouble paying your heating and electricity bill?: I choose not to answer this question Do you have trouble taking care of your child, family member or friend?: I choose not to answer this question Do you have trouble with day-to-day activities such as bathing, preparing meals, shopping, managing finances, etc.?: I choose not to answer this question Are you currently unemployed and looking for a job?: I choose not to answer this question Are you interested in more education?: I choose not to answer this question Please select the resources that you would like help with: None Currently or been in a relationship where the following occur: I choose not to answer THRIVE Score: 0 BRIGHT-7 AMB Questionnaire BRIGHT-7 Date BRIGHT - 7 assessed: 05/14/25 Feeling nervous, anxious, or on edge: 0 = Not at all Not being able to stop or control worryin = Not at all Worrying too much about different things: 0 = Not at all Trouble relaxin = Not at all Being so restless that it is hard to sit still: 0 = Not at all Becoming easily annoyed or irritable: 0 = Not at all Feeling afraid as if something awful might happen: 0 = Not at all Total BRIGHT-7 score (0-4 normal; 5-9 mild; 10-14 moderate; 15-21 severe): 0 Source: Developed by Drs. Butch Jenkins, Marleny Kellogg, Frank Polanco and colleagues, with an educational alberto from [employer]. BRIGHT-7 Assessment Billing BRIGHT-7 Assessment Tool: BRIGHT-7 Assessment 17028 Physical exam (Primary Care) Vital Signs: Last Vital Signs Temp 98.1 F 05/14/25 15:44 Pulse 54 05/14/25 15:44 Resp 14 05/14/25 15:44 BP 112/70 05/14/25 15:44 Pulse Ox 95 05/14/25 15:44 Oxygen Delivery Method Room Air 05/14/25 15:44 Tobacco/Smoking Status: Tobacco use Status Tobacco use date assessed 05/14/25 05/14/25 15:50 Patient Tobacco Use Status Never used Tobacco 05/14/25 15:42 e-Cigarette/Vaping Use Never Used 05/14/25 15:42 PHQ-9: PHQ-9 Score PHQ-9: Total score 0 05/14/25 15:50 Depression Screening Interpretation: Negative Thrive Assessment: Date of Thrive Assessment Date Thrive assessed 05/14/25 05/14/25 15:50 Currently or been in a relationship where the following occur: I choose not to answer Coding Level of Care Code Est Pt Level 3 (36637) Diagnoses Family history of pancreatic cancer Z80.0 Anemia D64.9 Elevated TSH R79.89 Additional Codes BRIGHT-7 Assessment Billing - BRIGHT-7 Assessment Tool: BRIGHT-7 Assessment 58634 ([id number]) PHQ-9 - 28400 - PHQ-9 Billing: Yes ([id number]) Assessment & Plan Assessment & Plan (1) Family history of pancreatic cancer: Code(s): Z80.0 - Family history of malignant neoplasm of digestive organs Category: Medical (2) Anemia: Code(s): D64.9 - Anemia, unspecified Category: Medical (3) Elevated TSH: Code(s): R79.89 - Other specified abnormal findings of blood chemistry Category: Medical Plan . Orders: Orders Complete Blood Count Auto Diff Today D64.9 - Anemia, unspecified Comprehensive [place]. Panel Fast Today D64.9 - Anemia, unspecified TSH reflex Free T4 Today D64.9 - Anemia, unspecified Vitamin B12 and Folate Today D64.9 - Anemia, unspecified Thyroid Peroxidase Antibodies Today R79.89 - Other specified abnormal findings of blood chemistry Ferritin Today D64.9 - Anemia, unspecified Lactate Dehydrogenase Today D64.9 - Anemia, unspecified Reticulocyte Count Today D64.9 - Anemia, unspecified Referrals Genetics Referral Z80.0 - Family history of malignant neoplasm of digestive or gary
[2025-05-14 15:44] VITALS: BP 112/70; PULSE 54; RESP 14; TEMP 36.7; O2SAT 95
--- OUTSIDE RECORDS SUMMARY | 2025-05-14 17:33 | XMS_ITS | Patient Health Record ---
Author Organization [facility] Address [address] [place] [address] Care Team Providers Care Weaver Hand Loom Name Role Phone TRU DE LA O Unavailable [phone] Allergies Allergen (clinical drug ingredient) Drug/Non Drug [...] Problem Status W/U Status Risk Notes Problem [facility]counter for [facility] without abnormal findings (Z00.00) [...] log exercise and discussed fitness Apps like [employer] which can help keep log off calories [...] hemoglobin A1c testing might be appropriate. 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
== END 2025-05-14 16:26 | disposition home or self-care (01) ==
LOC: HO.HMCC 15:40
PROVIDERS: PCP Nurse Practitioner Family; Visit Provider Nurse Practitioner Family
DX: Z80.0 Family history of malignant neoplasm of digestive organs (principal); D64.9 Anemia, unspecified; R79.89 Other specified abnormal findings of blood chemistry

== ENCOUNTER → 2025-05-14 15:39 | Outpatient (BNVA) | payer OTHER, SELFPAY | PROVIDERS: PCP Nurse Practitioner Family; Visit Provider Nurse Practitioner Family | DX: M35.3 Polymyalgia rheumatica (principal); D64.9 Anemia, unspecified; R00.1 Bradycardia, unspecified; K42.9 Umbilical hernia without obstruction or gangrene; R79.89 Other specified abnormal findings of blood chemistry; Z80.0 Family history of malignant neoplasm of digestive organs | CPT/HCPCS: 96127; 99212 ==

== ENCOUNTER 2025-05-28 06:35 | Outpatient (REF) | payer OTHER, SELFPAY ==
--- OUTSIDE RECORDS SUMMARY | 2025-05-28 06:37 | XMS_ITS | Patient Health Record ---
Author Organization [facility] Address [address] [place] [address] Care Team Providers Care Resident Intern Name Role Phone TRU DE LA O Unavailable [phone] Allergies Allergen (clinical drug ingredient) Drug/Non Drug [...] W/U Status Risk Notes Problem Encounter for general adult medical examination without [...] log exercise and discussed fitness Apps like [employer] which can help keep log off calories [...] hemoglobin A1c testing might be appropriate. Problem Hyperlipoproteinem ia (6208553) Acquired hyperlipoprotein emia (E78.5) Active confirmed Problem Dyslipidemia (E78.5) Active confirmed Plan Of Treatment [...] Insured Coverage Start Date Coverage End Date [facility] [address] [place] [address] [id number] LAXMI HAMM Self - patient is the insured
[2025-05-28 09:21] LABS: Anion Gap 10 (12-20); Blood Urea Nitrogen 14 mg/dL (9-16); Calcium 8.9 mg/dL (8.4-10.2); Carbon Dioxide 27 mmol/L (22-29); Chloride 105 mmol/L (96-108); Estimated Glomerular Filt Rate > 60; Glucose Random 102 mg/dL (60-115); Potassium 3.6 mmol/L (3.3-5.1); Sodium 138 mmol/L (135-145)
[2025-05-28 10:13] LABS: MANUAL DIFF FLAG NO
[2025-05-28 10:33] LABS: Basophils Absolute Auto 0.1 X10*3/uL (0.0-0.2); Basophils Percent Auto 0.7 % (0-2); Eosinophils Absolute Auto 0.2 X10*3/uL (0.0-0.4); Eosinophils Percent Auto 2.7 % (0-4); Hematocrit 41.4 % (42.0-52.0); Hemoglobin 13.1 g/dl (14.0-18.0); Imm Gran Abs Auto 0.02 X10*3/uL (0.00-0.03); Imm Gran Pct Auto 0.2 % (0.0-0.4); Immature Retic Fraction 7.7 % (2.3-13.4); Lymphocytes Absolute Auto 2.8 X10*3/uL (1.2-4.9); Lymphocytes Percent Auto 34.5 % (20-40); Mean Corpuscular HGB Conc 31.6 g/dl (31.0-36.0); Mean Corpuscular Hemoglobin 24.1 pg (27.0-33.0); Mean Corpuscular Volume 76.2 fL (80.0-98.0); Mean Platelet Volume 10.7 fL (9.4-12.4); Monocytes Absolute Auto 0.8 X10*3/uL (0.1-1.2); Monocytes Percent Auto 10.3 % (2-11); Neutrophils Absolute Auto 4.2 x10*3/uL (2.0-8.3); Neutrophils Percent Auto 51.6 % (45-73); Platelet Count 221 X10*3/uL (160-400); Red Blood Count 5.43 X10*6/uL (4.60-5.80); Red Cell Distribution Width 14.9 % (11.0-16.0); Retic HGB Equivalent 27.2 pg (30.0-35.0); Reticulocyte Percent 1.3 % (0.5-1.8); Reticulocytes Absolute 0.068 X10*6/uL (0.026-0.095); White Blood Count 8.2 X10*3/uL (4.8-10.8)
[2025-05-28 10:44] LABS: Alanine Aminotransferase 58 U/L (0-40); Albumin Level 4.1 g/dL (3.5-5.0); Alkaline Phosphatase 47 U/L (39-117); Anion Gap 12 (12-20); Aspartate Amino Transferase 38 U/L (5-37); Bilirubin Total 0.4 mg/dL (0.0-1.0); Blood Urea Nitrogen 14 mg/dL (9-16); Calcium 8.9 mg/dL (8.4-10.2); Carbon Dioxide 25 mmol/L (22-29); Chloride 105 mmol/L (96-108); Estimated Glomerular Filt Rate > 60; Glucose Fasting 102 mg/dL (60-99); Lactate Dehydrogenase 281 U/L (118-273); Potassium 3.8 mmol/L (3.3-5.1); Sodium 138 mmol/L (135-145); Total Protein 6.4 g/dL (6.5-8.0)
[2025-05-28 11:06] LABS: Ferritin 248 ng/mL (20-250); Folate 9.1 ng/mL (> or = 4.0); TSH reflex Free T4 3.31 uIU/mL (0.32-4.0); Vitamin B12 255 pg/mL (200-900)
[2025-05-29 18:43] LABS: Thyroid Peroxidase Antibodies 6 IU/mL (<9)
[2025-06-04 01:19] LABS: Metanephrine, Free <25 pg/mL (<=57); Normetanephrines, Free 49 pg/mL (<=148); Renin 4.66 ng/mL/h (0.25-5.82); Total Metanephrine, Free 49 pg/mL (<=205)
== END 2025-05-28 06:36 | disposition home or self-care (01) ==
LOC: HO.HMGCLDS 06:35
PROVIDERS: Absent Provider Student in an Organized Health Care Education/Training Program; PCP Nurse Practitioner Family; Visit Provider Nurse Practitioner Family
DX: D35.00 Benign neoplasm of unspecified adrenal gland (principal); D64.9 Anemia, unspecified; R79.89 Other specified abnormal findings of blood chemistry
CPT/HCPCS: 36415; 80048; 80053; 82088; 82607; 82728; 82746; 83615; 83835; 84244; 84443; 85025; 85045; 86376; 99202

== ENCOUNTER 2025-05-28 07:41 | Outpatient (AMB) | payer OTHER, SELFPAY ==
[2025-05-28 07:57] VITALS: BP 100/64; PULSE 42; O2SAT 97; BMI 27.6
--- NOTE | 2025-05-28 07:57 | MHC.OFFVIS ---
Vital Signs 05/28/25 07:57 Height 6 ft Weight 203 lb 4.259 oz BMI 27.6 BP 100/64 Blood Pressure Location Lt brachial Position Sitting Pulse 42 L Pulse Source Pulse Oximeter Pulse Oximetry (%) 97 Oxygen Delivery Method Room Air Intake Visit Reasons: Benign neoplasm of unspecified adrenal gland Intake Note: New patient present today for Benign neoplasm of unspecified adrenal gland. Can Machine Operator Required: No Accompanied by: Self / Same As Patient Allergies carbamazepine (From Tegretol) Allergy (Verified 05/28/25 08:02) Rash gabapentin Allergy (Verified 05/28/25 08:02) rash swollen mouth Penicillins Allergy (Verified 05/28/25 08:02) Hives Medication List - Last Reconciled 05/28/25 by Ramya Helm MD alfuzosin ER 10 mg PO DAILY 30 days prednisone 15 mg PO QAM HPI Comments Details: 60-year-old male here today for initial evaluation of bilateral adrenal gland nodules. 03/16/2025: MRI of the abdomen showed a 2 cm I would adrenal gland nodule with signal dropout in out of phase imaging, and a 1.4 cm left adrenal gland nodule with also signal dropout on out of phase imaging. Both consistent with lipid rich adenoma. MRI was done to look at pancreas due to family history of pancreatic cancer in brother. Symptoms: Pt denies any weight gain, severe acne ,headaches denies easy bruisability ,no abdominal striae,no headache,diaphoresis -No high blood pressure. -Diagnosed with PMR January 2025, has been on prednisone since then , currently 9 mg daily on a very slow taper going down by 1 mg every 1 month, being managed by rheum Dr. Campbell -Denies any history of glucose intolerance,no abdominal pain ,skin infection or hyperpigmentation. -no recent vertebra or fragility fracture -No truncal obesity,facial plethora or recent mood change. No hx of depression. -no episodic palpitaions, pallor, abdominal pain, diaphoresis . sometimes has intermittent palpitations, was evaluated by chief clinical officer , unremarkable findings per patient -no loss of libido, no erectile dysfunction ? Physical exam General: sitting comfortably in no acute distress HEENT: normocephalic/atraumatic, moist oral mucosa Neck: supple, symmetrical, no thyromegaly , no dorsocervical or supraclavicular fat pads Cardiac: normal heart sounds Pulm: normal breath sounds B/L, no added breath sounds Abd: not distended, no tenderness, no abdominal striae Extremities: no edema, no signs of myxedema Neuro: AAO x3, Speech: normal, no facial droop, moving all 4 extremities Laboratory Tests 04/26/25 06:52 Sodium 139 Potassium 3.7 Creatinine 0.88 Estimated GFR > 60 MR ABDOMEN WITHOUT AND WITH CONTRAST 03/16/25 CLINICAL INFORMATION: Family history of pancreatic cancer. COMPARISON: None available. TECHNIQUE: MR abdomen was performed without and with use of 9 mL intravenous (Gadavist) gadolinium contrast. Postcontrast images are performed in multiphase dynamic sequences. Imaging was performed in 3 planes. No reported immediate complications. FINDINGS: Patient's breathing motion artifact. LUNG BASES: No enhancing lesion. No fully included in the [id number]. LIVER, GALLBLADDER, AND BILIARY TREE: Liver measures 14 cm. No focal enhancing mass. Portal veins, hepatic veins and intrahepatic portion of the IVC are patent. No intrahepatic biliary ductal dilatation. Gallbladder is fluid-filled. No pericholecystic fluid collection or gallbladder wall thickening. Common bile duct measures 4 mm. PANCREAS: No focal mass. No main pancreatic ductal dilatation. No peripancreatic fluid collection. SPLEEN: 10 cm. No focal mass. ADRENAL GLANDS: Right adrenal gland: There is a 2 cm nodular lesion with iso to hypointense T1 and isointense T2 with drop off signal from the interface to the out of phase sequences. Left adrenal gland: There is a 1.4 cm nodular lesion with iso to hypointense T1 and isointense T2 with drop off signal from the in phase to out of phase imaging . KIDNEYS AND URETERS: No hydronephrosis. No solid lesion. Cystic lesions in the parapelvic left kidney and subcentimeter cystic lesion in the upper pole right kidney. GASTROINTESTINAL TRACT: Abundant stool, large intestine. No intestinal obstruction pattern. No ascites. ABDOMINAL WALL: Fat-containing umbilical hernia. LYMPH NODES: No lymphadenopathy. VASCULAR: No aneurysm or dissection, abdominal aorta. OSSEOUS STRUCTURES: Mild multilevel thoracic and lumbar spondylosis. MR/MR abdomen wo/w con IMPRESSION: No pancreatic mass. Lipid rich Adrenal adenoma, bilaterally. Electronically signed by: Giovani Infante MD 03/20/2025 08:44 AM EDT [facility] Medical History PMR (polymyalgia rheumatica) Surgical History H/O knee surgery Family History Father No problems noted. Mother No problems noted. Social History Housing: House Patient Tobacco Use Status: Never used Tobacco e-Cigarette/Vaping Use: Never Used service: No Current occupational status: employed Cognitive needs: No Hearing needs: No Vision needs: No Physical Exam Vital Signs: Last Vital Signs Pulse 42 L 05/28/25 07:57 BP 100/64 05/28/25 07:57 Pulse Ox 97 05/28/25 07:57 Oxygen Delivery Method Room Air 05/28/25 07:57 BMI result Body Mass Index 27.6 Assessment & Plan Assessment & Plan (1) Adrenal adenoma: Code(s): D35.00 - Benign neoplasm of unspecified adrenal gland Category: Medical Qualifiers: Laterality: unspecified laterality Qualified Code(s): D35.00 - Benign neoplasm of unspecified adrenal gland Plan: 60-year-old male here today for initial evaluation of bilateral adrenal gland nodules. He has a family history of pancreatic cancer so had MRI of the abdomen in February 2025 which showed bilateral adrenal gland nodules, I reviewed the images myself 03/16/2025: MRI of the abdomen showed a 2 cm right adrenal gland nodule with signal dropout in out of phase imaging, and a 1.4 cm left adrenal gland nodule with also signal dropout on out of phase imaging. Both consistent with lipid rich adenoma. Our first concern is to be sure that this is not an adrenal cortical carcinoma. ?Fortunately adrenal cortical carcinomas are exceedingly rare. ?However they do carry with them a very poor prognosis.?Given his clinical history with no deterioration in overall health; I have low suspicion for adrenocortical carcinoma to start with. ?At this point features on MRI are consistent with benign nodules, however I would plan to repeat an CT adrenal gland with washout in February of 2026. Another concern of adrenal masses is that they might be metastatic disease from another primary malignancy. ?This seems unlikely in his case. ?He is a lifelong non-smoker. ?A renal cancer which can metastasize to the adrenal glands probably would have been identified on his initial imaging study. ? ? Most adrenal masses are noncancerous or benign adrenal adenomas. ?However they can occasionally be functional and the hormones that are produced can cause clinical problems.??He has not been screened for any hormonal excess; although low clinical suspicion for pheochromocytoma; given the adrenal adenoma in question is greater than 1 cm I will err on the side of caution and screen with plasma free metanephrines with his blood work today. ? He does not have hypertension or history of hypokalemia but I will also check aldosterone and plasma renin activity. ? he has no clinical features of Moe syndrome. However at this time I can not even test for hypercortisolism because he is on prednisone for PMR, on a very slow taper. We will defer this testing till he is done with a his prednisone. ? The greatest likelihood is that this will be a nonfunctional benign adrenal adenoma that does not need to be removed. ?However we want to be careful that we have excluded all the other possibilities?first.? Plan: -ordered plasma metanephrine, normetanephrine levels, renin aldosterone, BMP -follow up in 5 weeks to discuss results -plan to do CT of the adrenal in February 2026 -we will defer testing for hypercortisolism till patient is done with prednisone course. Plan I spent 45 minutes in reviewing the record, seeing the patient and documenting in the medical record. Orders: Orders Aldosterone Today D35.00 - Benign neoplasm of unspecified adrenal gland Renin Today D35.00 - Benign neoplasm of unspecified adrenal gland Basic Metabolic Panel Today D35.00 - Benign neoplasm of unspecified adrenal gland Metanephrines, Plasma Today D35.00 - Benign neoplasm of unspecified adrenal gland Patient Instructions: Do blood work Follow up in 5 weeks to discuss results Coding Level of Care Code New Pt Level 4 (81111) Diagnoses Adrenal adenoma, unspecified laterality D35.00 Laterality: unspecified laterality Time Spent (min) 45
== END 2025-05-28 08:32 | disposition home or self-care (01) ==
LOC: HO.ENCR 07:42
PROVIDERS: PCP Nurse Practitioner Family; Visit Provider Student in an Organized Health Care Education/Training Program
DX: D35.00 Benign neoplasm of unspecified adrenal gland (principal)
CPT/HCPCS: 99204

== ENCOUNTER 2025-07-10 06:56 | Outpatient (REF) | payer OTHER, SELFPAY ==
--- OUTSIDE RECORDS SUMMARY | 2025-07-10 06:59 | XMS_ITS | Clinical Summary ---
Author Organization [facility] Address [address] [place] [address] Phone Care Team Providers Care Product Design Engineer Name Role Phone Pcp, Unknown Primary Care Provider Unavailabl e Immunizations Immunization Administration Dates Next Due Td, unspecified formulation 11/09/2006 Social History Tobacco Use Types Packs/Day Years Used Date Smoking Tobacco: Never Assessed Education Answer Date Recorded Are you interested in more education? Not on radha e 09/13/2024 Are you concerned about learning? Not on file 09/13/2024 No 09/13/2024 No 09/13/2024 Digital Access Answer Date Recorded No 09/13/2024 No 09/13/2024 Reliable internet access at home? Not on file 09/13/2024 Device with a working camera? Not on file Sex and Gender Information Value Date Recorded Sex Assigned at Not on file Legal Sex Male 10:34 PM EDT Gender Identity Not on file Sexual Orientation Not on file Last Filed Vital Signs Vital Sign Reading Time Taken Comments Blood Pressure 130/62 08/28/2016 9:01 AM EDT Pulse 68 08/28/2016 9:01 AM EDT Temperature - - Respiratory Rate - - Oxygen Saturation - - Inhaled Oxygen Concentration - - Weight 90.7 kg (200 lb) 08/28/2016 9:01 AM EDT Height 182.9 cm (6') 08/28/2016 9:01 AM EDT Body Mass Index 27.12 08/28/2016 9:01 AM EDT Plan of Treatment Health Maintenance Due Date Last Done Comments DEPRESSION SCREENING 1976 SMOKING Hx and SMOKELESS TOBACCO SCREENING 1977 HEPATITIS C SCREENING 1982 HIV ONE-TIME SCREENING (18-6 5 YEARS) 1982 COLOGUARD 2009 COLONOSCOPY 2009 COLORECTAL CANCER SCREENING 2009 FIT TEST 2009 FOBT 2009 SIGMOIDOSCOPY 2009 VIRTUAL COLONOSCOPY 2009 PNEUMOCOCCAL VACCINES (50+ years) (1 of 1 - PCV) 2014 ZOSTER VACCINES (1 of 2) 2014 Adult Td,Tdap Booster 11/09/2016 11/09/2006 COVID-19 VACCINE (1 - 2023-2 5 season) 2024 LIPID PANEL 06/05/2027 06/05/2022, 06/05/2022, 06/05/2022 RSV VACCINE (1 - 1-dose 75+ series) 2039 HEPATITIS A VACCINES Aged Out No long er eligible based on patient's age to complete this topic HIB VACCINES Aged Out No longer eligi ble based on patient's age to complete this topic MENINGOCOCCAL VACCINES (ACWY) Aged Out No longer eligible based on patient's age to complete this topic MENINGOCOCCAL VACCINES (B) Aged Out N o longer eligible based on patient's age to complete this topic Medical Devices Not on file Procedures Procedure Name Priority Date/Time Associated Diagnosis Comments OUTSIDE HDL Routine 06/05/2022 from Last 3 Months or Most Recently Relevant to Health Maintenance Results * Outside HDL (06/05/2022) HDL - External 60 40 - 80 mg/dL Historical Provider LAB BLOOD ORDERABLES Sandy l Result from Last 3 Months or Most Recently Relevant to Health Maintenance Insurance [facility] PCP SHAGUFTA SCHWARTZ CONNECTORCARE WELLSENSE NON NSPG PCP SILVER CLARITY CONNECTORCARE NON NSPG PCP SILVER CLARITY CONNECTORCARE WELLSENSE NON NSPG PCP SILVER CLARITY CONNECTORCARE WELLSENSE NON NSPG PCP SILVER CLARITY CONNECTORCARE WELLSENSE NON NSPG PCP [employer] CONNECTORCARE Care Teams Product Design Engineer Relationship Specialty Start Date End Date Pcp, Unknown PCP - General 09/12/24 Additional Source Comments The information contained in this document represents components of the legal health record. It is not the complete legal health record.[facility]
--- OUTSIDE RECORDS SUMMARY | 2025-07-10 06:59 | XMS_ITS ---
Author Name [facility] ([place], [place]) Organization Unknown Care Team Organization Name Specialty Phone Email Start Date End Da te [facility] HARLEEN DE LA O Primary Care 12/07/2022 07/17/2024
--- OUTSIDE RECORDS SUMMARY | 2025-07-10 06:59 | XMS_ITS | Patient Health Record ---
Author Organization [facility] Address [address] [place] [address] Care Team Providers Care Commissioned Defence Force Officer Name Role Phone TRU DE LA O Unavailable [phone] Allergies Allergen (clinical drug ingredient) Drug/Non Drug [...] Status Risk Notes Problem Adult health examination (037004883) Encounter for general adult medical examination without [...] log exercise and discussed fitness Apps like [employer] which can help keep log off calories [...] testing might be appropriate. Problem Hyperlipoproteinem ia (9732097) Acquired hyperlipoprotein emia (E78.5) Active confirmed Problem Dyslipidemia (497639587) Dyslipidemia (E78.5) Active confirmed Plan Of Treatment [...] Insured Coverage Start Date Coverage End Date [facility] [address] [place] [address] [id number] LAXMI HAMM Self - patient is the insured
[2025-07-10 10:06] LABS: MANUAL DIFF FLAG NO
[2025-07-10 10:20] LABS: Hematocrit 42.3 % (42.0-52.0); Hemoglobin 13.4 g/dl (14.0-18.0); Imm Gran Abs Auto 0.03 X10*3/uL (0.00-0.03); Imm Gran Pct Auto 0.4 % (0.0-0.4); Lymphocytes Absolute Auto 2.6 X10*3/uL (1.2-4.9); Mean Corpuscular HGB Conc 31.7 g/dl (31.0-36.0); Mean Corpuscular Hemoglobin 23.8 pg (27.0-33.0); Mean Corpuscular Volume 75.3 fL (80.0-98.0); NRBC Abs Auto 0.000 X10*3/uL (0.0-0.012); NRBC Pct Auto 0.0 /100WBC (0.0-0.2); Platelet Count 219 X10*3/uL (160-400); Red Blood Count 5.62 X10*6/uL (4.60-5.80); Reticulocytes Absolute 0.063 X10*6/uL (0.026-0.095); White Blood Count 7.1 X10*3/uL (4.8-10.8)
[2025-07-10 10:49] LABS: Alanine Aminotransferase 57 U/L (0-40); Albumin Level 3.9 g/dL (3.5-5.0); Alkaline Phosphatase 43 U/L (39-117); Anion Gap 14 (12-20); Aspartate Amino Transferase 36 U/L (5-37); Blood Urea Nitrogen 11 mg/dL (9-16); Calcium 8.7 mg/dL (8.4-10.2); Carbon Dioxide 25 mmol/L (22-29); Chloride 105 mmol/L (96-108); Estimated Glomerular Filt Rate > 60; Potassium 3.6 mmol/L (3.3-5.1); Sodium 140 mmol/L (135-145); Total Protein 6.3 g/dL (6.5-8.0)
[2025-07-10 11:20] LABS: Free T4 (Free Thyroxine) 0.84 ng/dL (0.71-1.85)
== END 2025-07-10 06:57 | disposition home or self-care (01) ==
LOC: HO.HMGCLDS 06:56
PROVIDERS: PCP Nurse Practitioner Family; Visit Provider Nurse Practitioner Family
DX: D35.02 Benign neoplasm of left adrenal gland (principal); D35.01 Benign neoplasm of right adrenal gland; D64.9 Anemia, unspecified; R74.8 Abnormal levels of other serum enzymes; R79.89 Other specified abnormal findings of blood chemistry; Z01.84 Encounter for antibody response examination; Z79.899 Other long term (current) drug therapy
CPT/HCPCS: 36415; 80053; 83615; 84439; 84443; 85025; 85045; 86376; 99212

== ENCOUNTER 2025-07-10 07:47 | Outpatient (AMB) | payer OTHER, SELFPAY ==
[2025-07-10 08:01] VITALS: BP 104/64; PULSE 50; O2SAT 96; BMI 28.2
--- NOTE | 2025-07-10 08:01 | MHC.OFFVIS ---
Vital Signs 07/10/25 08:01 Height 6 ft Weight 207 lb 10.807 oz BMI 28.2 BP 104/64 Blood Pressure Location Lt brachial Position Sitting Pulse 50 Pulse Source Pulse Oximeter Pulse Oximetry (%) 96 Oxygen Delivery Method Room Air Intake Visit Reasons: Benign neoplasm of unspecified adrenal gland Intake Note: Patient present today for Benign neoplasm of unspecified adrenal gland office visit. Graduation Coach Required: No Accompanied by: Self / Same As Patient Allergies carbamazepine (From Tegretol) Allergy (Verified 07/10/25 08:06) Rash gabapentin Allergy (Verified 07/10/25 08:06) rash swollen mouth Penicillins Allergy (Verified 07/10/25 08:06) Hives Medication List - Last Reconciled 07/10/25 by Ramya Helm MD alfuzosin ER 10 mg PO DAILY 30 days prednisone 15 mg PO QAM HPI Comments Details: 60-year-old male here today for follow up of bilateral adrenal gland nodules. HPI 03/16/2025: MRI of the abdomen showed a 2 cm I would adrenal gland nodule with signal dropout in out of phase imaging, and a 1.4 cm left adrenal gland nodule with also signal dropout on out of phase imaging. Both consistent with lipid rich adenoma. MRI was done to look at pancreas due to family history of pancreatic cancer in brother. Symptoms: Pt denies any weight gain, severe acne ,headaches denies easy bruisability ,no abdominal striae,no headache,diaphoresis -No high blood pressure. -Diagnosed with PMR January 2025, has been on prednisone since then , currently 9 mg daily on a very slow taper going down by 1 mg every 1 month, being managed by rheum Dr. Campbell -Denies any history of glucose intolerance,no abdominal pain ,skin infection or hyperpigmentation. -no recent vertebra or fragility fracture -No truncal obesity,facial plethora or recent mood change. No hx of depression. -no episodic palpitaions, pallor, abdominal pain, diaphoresis . sometimes has intermittent palpitations, was evaluated by yarn mercerizer operator , unremarkable findings per patient -no loss of libido, no erectile dysfunction ?Interval history 05/28/2025: Normal plasma metanephrine and normetanephrine levels. Renin was not suppressed, aldosterone normal. still on prednisone 7 mg daily Physical exam General: sitting comfortably in no acute distress HEENT: normocephalic/atraumatic, moist oral mucosa Neck: supple, symmetrical, no thyromegaly , no dorsocervical or supraclavicular fat pads Cardiac: normal heart sounds Pulm: normal breath sounds B/L, no added breath sounds Abd: not distended, no tenderness, no abdominal striae Extremities: no edema, no signs of myxedema Neuro: AAO x3, Speech: normal, no facial droop, moving all 4 extremities Laboratory Tests 04/26/25 06:52 Sodium 139 Potassium 3.7 Creatinine 0.88 Estimated GFR > 60 Laboratory Tests 05/28/25 09:00 Renin 4.66 Aldosterone 6 Plasma Free Metaneph <25 Plasma Free Normeta 49 Plas Total Metaneph 49 MR ABDOMEN WITHOUT AND WITH CONTRAST 03/16/25 CLINICAL INFORMATION: Family history of pancreatic cancer. COMPARISON: None available. TECHNIQUE: MR abdomen was performed without and with use of 9 mL intravenous (Gadavist) gadolinium contrast. Postcontrast images are performed in multiphase dynamic sequences. Imaging was performed in 3 planes. No reported immediate complications. FINDINGS: Patient's breathing motion artifact. LUNG BASES: No enhancing lesion. No fully included in the [id number]. LIVER, GALLBLADDER, AND BILIARY TREE: Liver measures 14 cm. No focal enhancing mass. Portal veins, hepatic veins and intrahepatic portion of the IVC are patent. No intrahepatic biliary ductal dilatation. Gallbladder is fluid-filled. No pericholecystic fluid collection or gallbladder wall thickening. Common bile duct measures 4 mm. PANCREAS: No focal mass. No main pancreatic ductal dilatation. No peripancreatic fluid collection. SPLEEN: 10 cm. No focal mass. ADRENAL GLANDS: Right adrenal gland: There is a 2 cm nodular lesion with iso to hypointense T1 and isointense T2 with drop off signal from the interface to the out of phase sequences. Left adrenal gland: There is a 1.4 cm nodular lesion with iso to hypointense T1 and isointense T2 with drop off signal from the in phase to out of phase imaging . KIDNEYS AND URETERS: No hydronephrosis. No solid lesion. Cystic lesions in the parapelvic left kidney and subcentimeter cystic lesion in the upper pole right kidney. GASTROINTESTINAL TRACT: Abundant stool, large intestine. No intestinal obstruction pattern. No ascites. ABDOMINAL WALL: Fat-containing umbilical hernia. LYMPH NODES: No lymphadenopathy. VASCULAR: No aneurysm or dissection, abdominal aorta. OSSEOUS STRUCTURES: Mild multilevel thoracic and lumbar spondylosis. MR/MR abdomen wo/w con IMPRESSION: No pancreatic mass. Lipid rich Adrenal adenoma, bilaterally. Electronically signed by: Giovani Infante MD 03/20/2025 08:44 AM EDT [facility] Medical History PMR (polymyalgia rheumatica) Surgical History H/O knee surgery Family History Father No problems noted. Mother No problems noted. Social History Housing: House Patient Tobacco Use Status: Never used Tobacco e-Cigarette/Vaping Use: Never Used service: No Current occupational status: employed Cognitive needs: No Hearing needs: No Vision needs: No Assessment & Plan Assessment & Plan (1) Adrenal adenoma: Code(s): D35.00 - Benign neoplasm of unspecified adrenal gland Category: Medical Qualifiers: Laterality: unspecified laterality Qualified Code(s): D35.00 - Benign neoplasm of unspecified adrenal gland Plan: 60-year-old male here today for follow up of bilateral adrenal gland nodules. He has a family history of pancreatic cancer so had MRI of the abdomen in February 2025 which showed bilateral adrenal gland nodules, I reviewed the images myself 03/16/2025: MRI of the abdomen showed a 2 cm right adrenal gland nodule with signal dropout in out of phase imaging, and a 1.4 cm left adrenal gland nodule with also signal dropout on out of phase imaging. Both consistent with lipid rich adenoma. ?At this point features on MRI are consistent with benign nodules, however I would plan to repeat an CT adrenal gland with washout in February of 2026. Labs from April 2025 showed normal plasma metanephrine and normetanephrine levels. Normal aldosterone and plasma renin activity. ? he has no clinical features of [place] syndrome. However at this time I can not even test for hypercortisolism because he is on prednisone for PMR, on a very slow taper. We will defer this testing till he is done with a his prednisone. ? Plan: -plan to do CT of the adrenal in February 2026 with follow up in clinic after -we will defer testing for hypercortisolism till patient is done with prednisone course. Plan See above Orders: Orders CT adrenal wo/w IV con 03/11/26 D35.00 - Benign neoplasm of unspecified adrenal gland Patient Instructions: Do CT of the adrenal gland in February 2026 with follow up in clinic after Coding Level of Care Code Est Pt Level 3 (38777) Diagnoses Adrenal adenoma, unspecified laterality D35.00 Laterality: unspecified laterality
== END 2025-07-10 08:17 | disposition home or self-care (01) ==
LOC: HO.ENCR 07:48
PROVIDERS: PCP Nurse Practitioner Family; Visit Provider Student in an Organized Health Care Education/Training Program
DX: D35.00 Benign neoplasm of unspecified adrenal gland (principal)
CPT/HCPCS: 99213

== ENCOUNTER 2025-08-07 09:27 | Outpatient (REF) | payer OTHER, SELFPAY ==
--- NOTE | ~2025-08-07 | US_ITS ---
CLINICAL HISTORY: R74.8 - Abnormal levels of other serum enzymes US abdomen complete with color Doppler Comparison: MR/SR - MR ABDOMEN WITHOUT THEN WITH IV CONTRAST - 03/16/25 16:24 EDT Findings: The visualized pancreas, aorta, and inferior vena cava are unremarkable. Liver normal size and echotexture. Right lobe 16.9 cm length. No focal hepatic masses. Common duct 4.0 mm diameter. Physiologic distention of the gallbladder. No gallstones or sludge. No gallbladder wall thickening. No pericholecystic fluid. No sonographic Alegre sign. Right kidney normal size, 11.7 cm in length. Normal cortical width and echotexture. No solid or cystic renal masses. No nephrolithiasis. No hydronephrosis. Left kidney normal, 12.9 cm in length. Normal cortical width and echotexture. No solid or cystic renal masses. No nephrolithiasis. No hydronephrosis. Spleen measures cm. No splenic masses. No ascites. No lymphadenopathy. Impression: 1. Normal abdominal ultrasound. This document has been electronically signed by: Noel Cuadra MD on 08/07/2025 11:50:48
--- OUTSIDE RECORDS SUMMARY | 2025-08-07 10:53 | XMS_ITS | Patient Health Record ---
Author Organization [facility] Address [address] [place] [address] Care Team Providers Care Teacher Of The Visually Impaired Name Role Phone TRU DE LA O Unavailable [phone] Allergies Allergen (clinical drug ingredient) Drug/Non Drug [...] Status Risk Notes Problem Adult health examination (589457728) Encounter for general adult medical examination without [...] log exercise and discussed fitness Apps like [employer] which can help keep log off calories [...] testing might be appropriate. Problem Hyperlipoproteinem ia (9561868) Acquired hyperlipoprotein emia (E78.5) Active confirmed Problem Dyslipidemia (231029848) Dyslipidemia (E78.5) Active confirmed Plan Of Treatment [...] Insured Coverage Start Date Coverage End Date [facility] [address] [place] [address] [id number] LAXMI HAMM Self - patient is the insured
[2025-08-07 13:55] LABS: PSA,Total (Free>4and<10) 6.10 ng/mL (0.00-4.00)
[2025-08-09 13:13] LABS: Free Prostate Spec Ag 0.6 ng/mL; Percent Free Prostate Spec Ag 10 % (calc) (>25)
== END 2025-08-07 09:28 | disposition home or self-care (01) ==
LOC: HO.HMGCX 09:27
PROVIDERS: Absent Provider Urology; PCP Nurse Practitioner Family; Referring Provider Urology; Visit Provider Nurse Practitioner Family
DX: R74.8 Abnormal levels of other serum enzymes (principal); R97.20 Elevated prostate specific antigen [PSA]; R39.12 Poor urinary stream
CPT/HCPCS: 36415; 76700; 84153; 84154

== ENCOUNTER → 2025-08-07 09:53 | Outpatient (BNV) | payer OTHER, SELFPAY | PROVIDERS: Absent Provider Urology; PCP Nurse Practitioner Family; Referring Provider Urology; Visit Provider Radiology Diagnostic Radiology | DX: R74.8 Abnormal levels of other serum enzymes (principal) | CPT/HCPCS: 76700 ==

== ENCOUNTER 2025-09-13 13:43 | Outpatient (REF) | payer OTHER, SELFPAY ==
--- NOTE | ~2025-09-13 | US_ITS ---
CLINICAL HISTORY: R39.12 - Poor urinary stream US Urinary Bladder Comparison: None Findings: The urinary bladder is unremarkable. Prevoid volume: 747 mL Postvoid volume: 17 mL Ureteral jets are visualized bilaterally. The prostate measures 7.2 x 4.7 x 4.2 cm. IMPRESSION: Normal urinary bladder This document has been electronically signed by: Moses Alexander MD on 09/14/2025 10:44:01
--- OUTSIDE RECORDS SUMMARY | 2025-09-13 17:28 | XMS_ITS | Patient Health Record ---
Author Organization [facility] Address [address] [place] [address] Care Team Providers Care Ip Paralegal Name Role Phone TRU DE LA O Unavailable [phone] Allergies Allergen (clinical drug ingredient) Drug/Non Drug [...] Status Risk Notes Problem Adult health examination (364108153) Encounter for general adult medical examination without [...] log exercise and discussed fitness Apps like [employer] which can help keep log off calories [...] testing might be appropriate. 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
--- OUTSIDE RECORDS SUMMARY | 2025-09-13 17:28 | XMS_ITS | Clinical Summary ---
Author Organization [facility] Address [address] [place] [address] Phone Care Team Providers Care Tar Heat Exchanger Cleaner Name Role Phone Pcp, Unknown Primary Care [...] 2) 2014 Adult Td,Tdap Booster 11/09/2016 11/09/2006 INFLUENZA VACCINE (#1) 2025 COVID-19 VACCINE (1 - 2024-2 6 season) 2025 LIPID PANEL 06/05/2027 06/05/2022, 06/05/2022, 06/05/2022 RSV [...] Most Recently Relevant to Health Maintenance Insurance [facility] PCP SHAGUFTA SCHWARTZ CONNECTORCARE WELLSENSE NON NSPG PCP SILVER CLARITY CONNECTORCARE NON NSPG PCP SILVER CLARITY CONNECTORCARE WELLSENSE NON NSPG PCP SILVER CLARITY CONNECTORCARE WELLSENSE NON NSPG PCP SILVER CLARITY CONNECTORCARE WELLSENSE NON NSPG PCP SILVER CLARITY CONNECTORCARE Care Teams Tar Heat Exchanger Cleaner Relationship Specialty Start Date End Date Pcp, Unknown PCP - General 09/12/24 Additional Source Comments The information contained in this document represents components of the legal health record. It is not the complete legal health record.[facility]
== END 2025-09-13 13:44 | disposition home or self-care (01) ==
LOC: HO.HMGCX 13:43
PROVIDERS: PCP Nurse Practitioner Family; Visit Provider Urology
DX: R39.12 Poor urinary stream (principal)
CPT/HCPCS: 76857

== ENCOUNTER → 2025-09-13 13:48 | Outpatient (BNV) | payer OTHER, SELFPAY | PROVIDERS: PCP Nurse Practitioner Family; Visit Provider Specialist | DX: R39.12 Poor urinary stream (principal) | CPT/HCPCS: 76857 ==

== ENCOUNTER 2025-09-25 08:28 | Outpatient (AMB) | payer OTHER, SELFPAY ==
--- NOTE | 2025-09-25 08:32 | A.OFFVIS_ITS ---
Intake Visit Reasons: follow up/US/PSA Intake Note: Patient is present for follow up Urology Medication:Alfuzosin Antibiotic Allergy:PENICILLINS,GABAPENTIN Blood Thinner:NONE Imaging : Ultrasound 08/07/25 Labs done 08/07/25 Total PSA 6.10 Program Advocate Required: No Accompanied by: Self / Same As Patient Allergies carbamazepine (From Tegretol) Allergy (Verified 09/25/25 08:35) Rash gabapentin Allergy (Verified 09/25/25 08:35) rash swollen mouth Penicillins Allergy (Verified 09/25/25 08:35) Hives HPI Comments Details: Giles is a pleasant male. He is a patient of Dr. Etienne. He is seen for the following urologic conditions - elevated PSA - urinary hesitancy - weakness of stream Elevated PSA Enlarged prostate on BA Bladder ultrasound 75 g prostate Less than 0.1 PSA density Switch from alfuzosin to finasteride Six-month follow-up repeat PSA Elevated PSA PSA - 03/23 5.2, 08/23 5.8 10% Bladder ultrasound 75 g prostate Lower urinary tract symptoms Initial assessment predominantly urinary hesitancy and weakness of stream No prior medications PFSH Medical History PMR (polymyalgia rheumatica) Surgical History H/O knee surgery Family History Father No problems noted. Mother No problems noted. Social History Housing: House Patient Tobacco Use Status: Never used Tobacco e-Cigarette/Vaping Use: Never Used service: No Current occupational status: employed Cognitive needs: No Hearing needs: No Vision needs: No Review of Systems Const Denies chills and Denies fever(s) Card Reports no additional complaints and Denies syncope Resp Denies cough GI Denies abdominal pain and Denies heartburn Reports as per HPI and Denies change in libido Neuro Denies syncope Psych Denies change in libido Endo Denies change in libido Physical Exam Const General: cooperative, healthy appearing, comfortable and no acute distress Orientation/consciousness: patient oriented x3 HEENT Face and sinus: Yes normal facial exam Mouth: moist mucous membranes Neck Neck: Yes normal visual inspection, Yes full ROM and Yes trachea midline Chest Chest palpation & inspection: normal inspection of the chest Resp Effort & Inspection: normal respiratory effort, able to speak in complete sentences and no respiratory distress GI Inspection: Yes normal to inspection Back/Spine/Pelvis Cervical Spine: normal cervical lordosis Thoracic/Lumbar Spine: thoracic and lumbar spine normal to inspection Skin General skin exam: no rashes or lesions noted Neuro General: patient oriented x3, gait normal, tone normal and moves all extremities Extrem General: Yes normal to inspection and Yes capillary refill normal Assessment & Plan Assessment & Plan (1) BPH loc w urin obs/LUTS: Code(s): N40.1 - Benign prostatic hyperplasia with lower urinary tract symptoms Category: Medical (2) Elevated prostate specific antigen (PSA): Code(s): R97.20 - Elevated prostate specific antigen [PSA] Category: Medical Plan Six-month follow-up PSA Orders: Orders Prostate Specific Antigen 6 Months N40.1 - Benign prostatic hyperplasia with lower urinary tract symptoms Medications: New finasteride 5 mg PO DAILY 90 tabs 1RF 90 days N40.1 - Benign prostatic hyperplasia with lower urinary tract symptoms Patient Instructions: This note is constructed using voice recognition software. While every effort has been made to ensure accuracy director of market analysis errors may have been included. Imaging studies, laboratory and physical exam results were discussed and reviewed in detail. No major barriers to patient understanding were identified. An opportunity to ask questions regarding the treatment plan was provided. All questions were answered. The patient expressed understanding and agreement with the above treatment plan. The patient is aware they should contact our office by phone for worsening of their current condition or the appearance of new urologic symptoms. Compliance is encouraged with any medications and followup testing that is ordered. It is a privilege to participate in the urologic care of your patient. If you have any questions or concerns regarding treatment for the above conditions, or other urologic issues, please do not hesitate to contact me. The office telephone contact is [phone]. Sincerely, Dr Ravindra Rodriguez MD, [facility] - Urology Compassionate Specialist Care for the Genitourinary System Coding Level of Care Code Est Pt Level 4 (62668) Complex EM visit Add On G2211 Diagnoses BPH loc w urin obs/LUTS N40.1 Elevated prostate specific antigen (PSA) R97.20
--- OUTSIDE RECORDS SUMMARY | 2025-09-25 09:06 | XMS_ITS | Patient Health Record ---
Author Organization [facility] Address [address] [place] [address] Care Team Providers Care Surgical Processor Name Role Phone TRU DE LA O Unavailable [phone] Allergies Allergen (clinical drug ingredient) Drug/Non Drug [...] Status Risk Notes Problem Adult health examination (048412253) Encounter for general adult medical examination without [...] log exercise and discussed fitness Apps like [employer] which can help keep log off calories [...] testing might be appropriate. 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
--- OUTSIDE RECORDS SUMMARY | 2025-09-25 09:06 | XMS_ITS | Clinical Summary ---
Author Organization [facility] Address [address] [place] [address] Phone Care Team Providers Care Physical Medicine Specialist Name Role Phone Pcp, Unknown Primary Care [...] Most Recently Relevant to Health Maintenance Insurance [facility] PCP SHAGUFTA SCHWARTZ CONNECTORCARE WELLSENSE NON NSPG PCP SILVER CLARITY CONNECTORCARE NON NSPG PCP SILVER CLARITY CONNECTORCARE WELLSENSE NON NSPG PCP SILVER CLARITY CONNECTORCARE WELLSENSE NON NSPG PCP SILVER CLARITY CONNECTORCARE WELLSENSE NON NSPG PCP SILVER CLARITY CONNECTORCARE Care Teams Physical Medicine Specialist Relationship Specialty Start Date End Date Pcp, Unknown PCP - General 09/12/24 Additional Source Comments The information contained in this document represents components of the legal health record. It is not the complete legal health record.[facility]
== END 2025-09-25 09:04 | disposition home or self-care (01) ==
LOC: HO.HUSH 08:29
PROVIDERS: PCP Nurse Practitioner Family; Visit Provider Urology
DX: N40.1 Benign prostatic hyperplasia with lower urinary tract symptoms (principal); R97.20 Elevated prostate specific antigen [PSA]
CPT/HCPCS: 99214

== ENCOUNTER → 2025-09-25 08:28 | Outpatient (BNVA) | payer OTHER, SELFPAY | PROVIDERS: PCP Nurse Practitioner Family; Visit Provider Urology | DX: N40.1 Benign prostatic hyperplasia with lower urinary tract symptoms (principal); R97.20 Elevated prostate specific antigen [PSA] | CPT/HCPCS: 99212 ==